=== PATIENT | female | born 1940 | race Caucasian/White ===

== ENCOUNTER 2016-12-11 17:47 | Emergency (ER) | payer MEDICARE ==
[2016-12-11] MEDS ORDERED: Aspirin Low Dose CHEW TAB* 81 MG PO ONE (19:26)
[2016-12-11 19:56] LABS: Hematocrit 41 % (35-47); Hemoglobin 13.7 g/dl (12.0-16.0); Mean Corpuscular HGB Conc 33 g/dl (31-36); Mean Corpuscular Hemoglobin 28 pg (27-31); Mean Corpuscular Volume 84 fL (80-97); Mean Platelet Volume 8 um3 (7.4-10.4); Red Blood Count 4.84 10^6/ul (4.0-5.4); Red Cell Distribution Width 15 % (10.5-15); White Blood Count 9.8 10^3/ul (3.5-10.8)
[2016-12-11 20:14] LABS: Albumin 3.7 g/dL (3.2-5.2); Calcium 9.5 mg/dL (8.6-10.3); Globulin 3.1 g/dL (2-4); Magnesium 1.9 mg/dL (1.9-2.7); Potassium 3.7 mmol/L (3.5-5.0); Total Bilirubin 0.6 mg/dL (0.2-1.0); Total Protein 6.8 g/dL (6.4-8.9)
--- NOTE | 2016-12-11 20:14 | ED ---
Ibrahima Wing Rebecca, scribed for Minesh Latham MD on 12/11/16 at 1915 . HPI Chest Pain - HPI Summary HPI Summary: Pt is a 76 y/o F BIBA who presents to ED c/o CP. Pain began yesterday afternoon while walking and has been intermittent since onset, with episodes lasting a few seconds. Last episode occurred at 1400 today. When present, pain is right anterior and she describes it as "just a pain" and pain is currently ranked 0/ 10. States she is asymptomatic currently. Yesterday, sx aggravated by deep breaths, alleviated by nothing. No prior similar episodes. - History of Current Complaint Chief Complaint: EDChestPainROMI Time Seen by Provider: 12/11/16 19:14 Hx Obtained From: Patient Onset/Duration: Started Days Ago - Yesterday, Resolved Timing: Intermittent, Lasting Seconds Current Severity: None Pain Intensity: 0 Pain Scale Used: 0-10 Numeric Chest Pain Location: Right Anterior Character: Other: - "just a pain" Aggravating Factor(s): Deep Breaths Alleviating Factor(s): Nothing Associated Signs and Symptoms: Positive: Negative - Allergy/Home Medications Allergies/Adverse Reactions: Allergies Allergy/AdvReac Type Severity Reaction Status Date / Time Amoxicillin Allergy Unknown Verified 04/19/14 02:15 Reaction Details PMH/Surg Hx/FS Hx/Imm Hx Cardiovascular History: Reports: Hx Hypertension Musculoskeletal History: Reports: Hx Arthritis - Cancer History Hx Chemotherapy: No Hx Radiation Therapy: No - Surgical History Surgery Procedure, Year, and Place: TONSILLECTOMY. BILATERAL TOTAL KNEE REPLACEMENTS. ADENOIDECTOMY Infectious Disease History: No Infectious Disease History: Denies: Traveled Outside the [place] in Last 30 Days - Family History Known Family History: Positive: Other - Bundle branch block (father) - Social History Alcohol Use: Occasionally Substance Use Type: Reports: None Smoking Status (MU): Former Smoker Review of Systems Negative: Fever Positive: Chest Pain - Intermittent episodes, resolved All Other Systems Reviewed And Are Negative: Yes Physical Exam Triage Information Reviewed: Yes Vital Signs On Initial Exam: Initial Vitals Temp Pulse Resp BP Pulse Ox 98.4 F 100 18 164/64 94 12/11/16 18:00 12/11/16 18:00 12/11/16 18:00 12/11/16 18:00 12/11/16 18:00 Vital Signs Reviewed: Yes Appearance: Positive: Well-Appearing, No Pain Distress Skin: Positive: Warm Head/Face: Positive: Normal Head/Face Inspection Eyes: Positive: ANGELA ENT: Positive: Hearing grossly normal Neck: Positive: Supple Respiratory/Lung Sounds: Positive: Clear to Auscultation, Breath Sounds Present Cardiovascular: Positive: RRR Abdomen Description: Positive: No Organomegaly Musculoskeletal: Positive: Strength/ROM Intact Neurological: Positive: Sensory/Motor Intact Psychiatric: Positive: Affect/Mood Appropriate - Josef Coma Scale Coma Scale Total: 15 Diagnostics - Vital Signs Vital Signs Temp Pulse Resp BP Pulse Ox 12/11/16 18:03 98.3 F 98 17 164/64 94 12/11/16 18:00 98.4 F 100 18 164/64 94 - Laboratory Lab Results: Lab Results 12/11/16 12/11/16 12/11/16 Range/Units 19:45 19:45 19:45 WBC 9.8 (3.5-10.8) 10^3/ul RBC 4.84 (4.0-5.4) 10^6/ul Hgb 13.7 (12.0-16.0) g/dl Hct 41 (35-47) % MCV 84 (80-97) fL MCH 28 (27-31) pg MCHC 33 (31-36) g/dl RDW 15 (10.5-15) % Plt Count 237 (150-450) 10^3/ul MPV 8 (7.4-10.4) um3 Neut % (Auto) 76.7 (38-83) % Lymph % (Auto) 15.3 L (25-47) % [place] % (Auto) 6.1 (1-9) % Eos % (Auto) 1.2 (0-6) % Baso % (Auto) 0.7 (0-2) % Absolute Neuts (auto) 7.5 (1.5-7.7) 10^3/ul Absolute Lymphs (auto) 1.5 (1.0-4.8) 10^3/ul Absolute Monos (auto) 0.6 (0-0.8) 10^3/ul Absolute Eos (auto) 0.1 (0-0.6) 10^3/ul Absolute Basos (auto) 0.1 (0-0.2) 10^3/ul Absolute Nucleated RBC 0 10^3/ul Nucleated RBC % 0 Sodium 136 (133-145) mmol/L Potassium 3.7 (3.5-5.0) mmol/L Chloride 101 (101-111) mmol/L Carbon Dioxide 25 (22-32) mmol/L Anion Gap 10 (2-11) mmol/L BUN 20 (6-24) mg/dL Creatinine 0.87 (0.51-0.95) mg/dL Est GFR ( Amer) 81.0 (>60) Est GFR (Non-Af Amer) 63.0 (>60) BUN/Creatinine Ratio 23.0 H (8-20) Glucose 105 H (70-100) mg/dL Lactic Acid 1.0 (0.5-2.0) mmol/L Calcium 9.5 (8.6-10.3) mg/dL Magnesium 1.9 (1.9-2.7) mg/dL Total Bilirubin 0.60 (0.2-1.0) mg/dL AST 15 (13-39) U/L ALT 13 (7-52) U/L Alkaline Phosphatase 40 (34-104) U/L Troponin I Pending Total Protein 6.8 (6.4-8.9) g/dL Albumin 3.7 (3.2-5.2) g/dL Globulin 3.1 (2-4) g/dL Albumin/Globulin Ratio 1.2 (1-3) Result Diagrams: 12/11/16 19:45 12/11/16 19:45 Lab Statement: Any lab studies that have been ordered have been reviewed, and results considered in the medical decision making process. - Radiology CXR Xray Interpretation: Positive (See Comments) - 1. COPD 2. PATCHY ATELECTASIS VERSUS EARLY CONSOLIDATION OF THE RIGHT MIDDLE LOBE. RECOMMEND FOLLOW-UP UNTIL RESOLUTION TO EXCLUDE UNDERLYING PULMONARY PARENCHYMAL PATHOLOGY. Radiology Interpretation Completed By: Radiologist - EKG 1828 Cardiac Rate: NL - 92 bpm EKG Interpretation: RBBB; L anterior hemiblock Re-Evaluation - Re-Evaluation First Eval Re-Evaluation Time: 23:39 Change: Improved Comment: She is feeling well. Discussed D/C plan. Chest Pain Course/Dx - Course Assessment/Plan: Pt is a 76 y/o F BIBA who presents to ED c/o intermittent episodes of CP since yesterday afternoon while walking, lasting seconds. Last episode was at 1400 today. When present, pain is right anterior and she describes it as "just a pain" and pain is currently ranked 0/10. States she is asymptomatic currently. Yesterday, sx aggravated by deep breaths, alleviated by nothing. No prior similar episodes. Troponin 1 and 2 are 0.01. CXR reveals "1. COPD 2. PATCHY ATELECTASIS VERSUS EARLY CONSOLIDATION OF THE RIGHT MIDDLE LOBE. RECOMMEND FOLLOW-UP UNTIL RESOLUTION TO EXCLUDE UNDERLYING PULMONARY PARENCHYMAL PATHOLOGY." EKG reveals RBBB and L anterior hemiblock. Pt will be D/ C to home with Dx of chest pain and a follow up with her PCP. She understands and agrees. - Diagnoses Provider Diagnoses: Chest pain Discharge - Discharge Plan Condition: Stable Disposition: HOME Patient Education Materials: Chest Pain (ED) Referrals: Josr Landaverde MD [Primary Care Provider] - 3 Days The documentation as recorded by the Ibrahima cowart Rebecca accurately reflects the service I personally performed and the decisions made by me, Minesh Latham MD.
[2016-12-11 20:16] LABS: Troponin I 0.01 ng/mL (<0.04)
--- NOTE | 2016-12-11 20:24 | RAD ---
HISTORY: Chest pain COMPARISONS: April 19, 2014 VIEWS: 4: Frontal dual-energy and lateral views of the chest. FINDINGS: CARDIOMEDIASTINAL SILHOUETTE: The cardiomediastinal silhouette is normal. KARLA: The karla are normal. PLEURA: The costophrenic angles are sharp. No pleural abnormalities are noted. LUNG PARENCHYMA: There is hyperinflation with flattening of the diaphragm and expansion of the AP diameter of the chest. There is patchy alveolar opacification of the right middle lobe. ABDOMEN: The upper abdomen is clear. There is no subphrenic gas. BONES AND SOFT TISSUES: Degenerative changes are noted along the spine. OTHER: None. IMPRESSION: 1. COPD 2. PATCHY ATELECTASIS VERSUS EARLY CONSOLIDATION OF THE RIGHT MIDDLE LOBE. RECOMMEND FOLLOW-UP UNTIL RESOLUTION TO EXCLUDE UNDERLYING PULMONARY PARENCHYMAL PATHOLOGY.
[2016-12-11 23:59] VITALS: BP 125/51
== END 2016-12-11 23:58 | disposition home or self-care (01) ==
LOC: ED 17:47
DX: R07.9 Chest pain, unspecified (principal); Z87.891 Personal history of nicotine dependence; I10 Essential (primary) hypertension; Z88.0 Allergy status to penicillin
CPT/HCPCS: 36415; 71020; 80053; 83605; 83735; 84484; 85025; 93005; 99283; A9270-GY